=== PATIENT | male | born 1935 | race Caucasian/White ===

== ENCOUNTER 2024-05-20 14:20 | Emergency (ER) | payer MEDICAID, SELFPAY ==
[2024-05-20 14:23] VITALS: BP 157/79
[2024-05-20 14:30] VITALS: BMI 21.8
[2024-05-20 14:50] LABS: % Basophils 0.2 % (0-2); % Eosinophils 0.5 % (0-6); % Immature Granulocytes 0.5 % (0-0.5); % Lymphocytes 22.9 % (20.5-51.1); % Monocytes 4.2 % (1.7-9.3); % Neutrophils 71.7 % (42.2-75.2); Absolute Lymphocytes 1.9 10^3/uL (1.2-3.4); Absolute Monocytes 0.3 10^3/uL (0.1-0.6); Absolute Neutrophils 5.8 10^3/uL (1.4-6.5); Hematocrit 36.8 % (39.0-52.0); Hemoglobin 12.2 g/dL (13.0-18.0); Mean Corp Hgb Conc. 33.2 g/dL (33.0-37.0); Mean Corpuscular Hgb 30.2 pg (27.0-31.0); Mean Corpuscular Volume 91.1 fL (80.0-94.0); Mean Platelet Volume 10.2 fL (7.4-10.4); Nucleated Red Blood Cells % 0 % (-); Platelet Count 187 10^3/uL (130-400); Red Blood Cell Count 4.04 10^6/uL (4.70-6.10); Red Cell Dist. Width 13.2 % (11.5-14.5); White Blood Cell Count 8.1 10^3/uL (4.8-10.8)
[2024-05-20 15:01] LABS: ALT (SGPT) 18 U/L (0-50); AST (SGOT) 20 U/L (17-59); Alkaline Phosphatase 167 U/L (38-126); Blood Urea Nitrogen 26 mg/dl (9-20); Calcium 9.4 mg/dl (8.4-10.2); Carbon Dioxide 31 mmol/L (22-30); Chloride 99 mmol/L (98-107); Estimated Creatinine Clearance 53 ml/min; Glucose 107 mg/dl (70-99); Potassium 4.2 mmol/L (3.5-5.1); Sodium 137 mmol/L (135-145); Total Bilirubin 0.9 mg/dl (0.2-1.3); Total Protein 6.7 g/dl (6.3-8.2); eGFR > 60.00
--- NOTE | 2024-05-20 15:02 | ED.GENMED ---
History of Present Illness
General
Chief Complaint: Fall
Source: family (Both daughters)
Time Seen by Provider: 05/20/24 14:23
History of Present Illness
History of Present Illness:
89-year-old male apparently fell yesterday. Unwitnessed but family heard the fall and immediately got to him and he was awake. They do not think he syncopized. Patient has significant dementia. He is not stood or bared weight since this.
Past History
Past History
ED Past Medical History: HTN and Other (Dementia)
ED Past Surgical History: Appendectomy
Social History
Living: with family
Employment: Retired
Review of Systems
Review of Systems
Unable to obtain full review of systems at this time due to: dementia
All Other Systems: Not applicable
Phy Exam
Physical Exam
Physical Exam:
TRAUMA EXAM:
VITAL SIGNS: Vital signs reviewed, quiet. Nonverbal. Is not opening his eyes. Does respond to his daughters however
DISTRESS: No active disease
EYES: Pupils reactive, no orbital trauma
NOSE: No deformity or epistaxis
FACE AND SCALP: No scalp or facial trauma, external canals no blood
NECK: Supple nontender
BACK: Pelvis stable
RESPIRATORY: No distress, breath sounds normal, no tender chest wall
CARDIAC: No murmur, pulses equal and strong
ABDOMEN: Soft nontender bowel sounds normal
SKIN: Skin intact no bleeding, color normal
EXTREMITIES: Questionable slight shortening of the left leg and questionable slight external rotation. However no obvious pain with hip rotation. No pelvic instability.
NEUROLOGICAL: Grossly nonfocal. Significant dementia.
PSYCH: Mood affect normal
Course
Orders/Labs/Results
Orders:
Orders
05/20/24 14:36
Complete Blood Count/With Diff Urgent
Comprehensive Metabolic Panel Urgent
05/20/24 14:47
Hip, Left 2-3 Views [CR Hip - LT w/wo Pel 2-3 Vw*] Urgent
Comment:
Reason For Exam: Trauma/left hip pain
Include a pelvis x-ray?: Yes
05/20/24 15:38
CT Lower Ext W/o Iv Cont Lt Urgent
Comment:
Reason For Exam: Left hip pain.
Abnormal Lab Results
05/20/24
14:36
RBC 4.04 L 10^6/uL
(4.70-6.10)
Hgb 12.2 L g/dL
(13.0-18.0)
Hct 36.8 L %
(39.0-52.0)
Carbon Dioxide 31 H mmol/L
(22-30)
BUN 26 H mg/dl
(9-20)
Glucose 107 H mg/dl
(70-99)
Alkaline Phosphatase 167 H U/L
(38-126)
05/20/24 14:36
05/20/24 14:36
Vital Signs
Initial and Last Documented VS:
Initial Vital Signs
Temp Pulse Resp BP Pulse Ox
98.4 F 72 16 157/79 98
05/20/24 14:23 05/20/24 14:23 05/20/24 14:23 05/20/24 14:23 05/20/24 14:23
Last Documented Vital Signs
Temp Pulse Resp BP Pulse Ox
98.4 F 72 16 157/79 98
05/20/24 14:23 05/20/24 14:23 05/20/24 14:23 05/20/24 14:23 05/20/24 14:23
MDM/Problems Addressed
Differential Diagnosis Includes:
Fairly high suspicion for hip or pelvic fracture. Patient will not bear weight. Workup in progress. No other signs of trauma.
*Radiology
Radiology exam reviewed: preliminary read by ED provider (Negative) and radiology read reviewed (Nondisplaced fracture superior pubic ramus and anterior acetabulum)
*Critical Care Note
Total Time (30-74mins, 75-104mins- exclusive of procedures): Not Applicable
Data Reviewed
Review of Other/Old Records Reveals: Labs, Records and Testing
Update Note
Update Note:
Report sent to orthopedics. Agree weightbearing as tolerated. Family would prefer to have him at home. Options of admission rehab versus home were offered and discussed.
ED Attending Note
-
Portions of this chart may have been created with voice recognition software.� Occasional wrong word or��sound alike� substitutions may have occurred due to the inherent limitations of voice recognition software.
Discharge Plan
Departure
Patient Disposition: Home (Routine Discharge)
Date of Disposition: 05/20/24
Time of Disposition: 18:07
Patient with high blood pressure during this ER visit?: Yes
Discharge Problem:
Fall/pelvic fracture
Instructions: Pelvic fracture, BLOOD PRESSURE
Prescriptions:
No Action
memantine 10 mg Tablet
10 mg PO DAILY
tamsulosin 0.4 mg Capsule
0.4 mg PO DAILY
Referrals:
Lc Thomas MD [Active] - Follow up in 2-3 days
Naima Chi MD [Family Provider] -
Activity Restrictions/Additional Instructions:
Toe-touch weightbearing as tolerated
Call the orthopedist Wednesday for close follow-up
Tylenol would be the safest for pain
If you change your mind about admission, had difficulty handling the issues at home, increasing pain, please return immediately to the ER
Interventions
Interventions:
*General Assessment Last Done: 05/20/24 14:30
ED- Fall Risk Assessment Last Done: 05/20/24 14:33
ED-Musculoskeletal Assessment Last Done: 05/20/24 14:33
ED- Neurological Assessment Last Done: 05/20/24 14:33
ED-Skin Assessment Last Done: 05/20/24 14:33
Discharge Date and Time
Print Language: YEMENI
== END 2024-05-20 19:13 | disposition home or self-care (01) ==
LOC: EMR 14:20
PROVIDERS: EMERGENCY PHYSICIAN Emergency Medicine; FAMILY PHYSICIAN Family Medicine
DX: S32.512A Fracture of superior rim of left pubis, initial encounter for closed fracture (principal); S32.492A Other specified fracture of left acetabulum, initial encounter for closed fracture; W19.XXXA Unspecified fall, initial encounter; I10 Essential (primary) hypertension; F03.90 Unspecified dementia, unspecified severity, without behavioral disturbance, psychotic disturbance, mood disturbance, and anxiety; Z90.49 Acquired absence of other specified parts of digestive tract
CPT/HCPCS: 99284; 73502; 73700; 80053; 85025

== ENCOUNTER 2024-05-28 19:48 | Inpatient (IN) | payer MEDICAID, SELFPAY ==
[2024-05-28] VITALS (10 sets, daily range): BP systolic 79–157; BP diastolic 46–69
[2024-05-28] MEDS: NSS 1000 IV ×2 (13:52→20:27)
[2024-05-28 14:10] LABS: % Basophils 0.3 % (0-2); % Eosinophils 0.1 % (0-6); % Immature Granulocytes 0.4 % (0-0.5); % Lymphocytes 17.4 % (20.5-51.1); % Monocytes 6.3 % (1.7-9.3); % Neutrophils 75.5 % (42.2-75.2); Absolute Lymphocytes 1.8 10^3/uL (1.2-3.4); Absolute Monocytes 0.7 10^3/uL (0.1-0.6); Absolute Neutrophils 7.8 10^3/uL (1.4-6.5); Hematocrit 33.8 % (39.0-52.0); Hemoglobin 11.6 g/dL (13.0-18.0); Mean Corp Hgb Conc. 34.3 g/dL (33.0-37.0); Mean Corpuscular Hgb 30.4 pg (27.0-31.0); Mean Corpuscular Volume 88.5 fL (80.0-94.0); Mean Platelet Volume 10.1 fL (7.4-10.4); Nucleated Red Blood Cells % 0 % (-); Platelet Count 251 10^3/uL (130-400); Red Blood Cell Count 3.82 10^6/uL (4.70-6.10); Red Cell Dist. Width 13.3 % (11.5-14.5); Urine Albumin 1+ (Neg - Trace); Urine Bilirubin Negative (Negative); Urine Character Clear (Clear); Urine Color Yellow; Urine Glucose Negative (Negative); Urine Ketone Negative (Negative); Urine Leukocyte Negative (Negative); Urine Nitrite Negative (Negative); Urine Occult Blood Negative (Negative); Urine Urobilinogen Negative (Neg - 1+); White Blood Cell Count 10.3 10^3/uL (4.8-10.8)
[2024-05-28 14:27] LABS: ALT (SGPT) 14 U/L (0-50); AST (SGOT) 18 U/L (17-59); Albumin 3.2 g/dl (3.5-5.0); Alkaline Phosphatase 160 U/L (38-126); Blood Urea Nitrogen 37 mg/dl (9-20); Calcium 9.4 mg/dl (8.4-10.2); Carbon Dioxide 27 mmol/L (22-30); Chloride 102 mmol/L (98-107); Glucose 127 mg/dl (70-99); Lipase 40 U/L (23-300); Potassium 3.9 mmol/L (3.5-5.1); Sodium 134 mmol/L (135-145); Total Bilirubin 1.2 mg/dl (0.2-1.3); Total Protein 5.7 g/dl (6.3-8.2); eGFR > 60.00
[2024-05-28 14:36] LABS: COVID-19 Antigen Negative (Negative)
[2024-05-28 14:43] LABS: Urine Red Blood Cell None Seen /HPF (0-2); Urine Squamous Cell None seen /LPF (Few); Urine White Cell None Seen /HPF (0-5)
--- NOTE | 2024-05-28 14:45 | ED.GENMED ---
History of Present Illness
General
Chief Complaint: Failure to Thrive
Source: patient
Exam Limitations: none
Time Seen by Provider: 05/28/24 14:12
Nursing documentation reviewed up to this point in time: agreed with
History of Present Illness
History of Present Illness:
Patient with history of dementia, presents to ED from home, accompanied by his daughters, secondary to decreased appetite and intake over the past 2 days, along with increased burping along with 'rubbing his belly', similar to when he had bowel
obstruction a few years ago. Denies fever. Denies vomiting. Denies diarrhea. Denies abdominal distention. Family does report 'large bowel movement' yesterday. Denies recent change in medications or diet. Secondary to constant burping, patient
has not been able to sleep well for the past 2 nights.
Past History
Past History
ED Past Medical History: HTN and Other (Dementia)
ED Past Surgical History: Appendectomy
Social History
Living: with family
Employment: Retired
Review of Systems
Review of Systems
Unable to obtain full review of systems at this time due to: dementia
All Other Systems: Not applicable
Phy Exam
Physical Exam
Physical Exam:
Physical Exam
General: no apparent distress, not acutely ill. afebrile
Head: nc/at. eommi
Neck: supple. normal range of motion.
Heart: s1/s2 regular rate and rhythm, no murmur.
Lungs: no acute respiratory distress. clear bilaterally
Abdomen: normal bowel sounds. not tender. no distention
Neuro: alert and oriented x 1. no focal neurological deficits
Skin: no rash
Extremities: no edema. no calf tenderness.
Course
Orders/Labs/Results
Orders:
Orders
05/28/24 13:38
Straight cath- Treatment ONCE
05/28/24 13:52
0.9% Sodium Chloride 1000 ml [Nss] 1,000 ml IV BOLUS
05/28/24 13:53
COVID-19 Antigen Urgent
Source: Nasal Swab
Complete Blood Count/With Diff Urgent
Comprehensive Metabolic Panel Urgent
Lipase Urgent
Urinalysis Reflex To Culture Urgent
Date Specimen was Collected: 05/28/24
Time Specimen was Collected: 13:37
Urine Microscopic Reflex Cult Urgent
Influenza A+B Rapid Molecular Urgent
GUILLE Source: Nasal Swab
Specimen Description:
Date Specimen was Collected: 05/28/24
Time Specimen was Collected: 13:37
05/28/24 14:13
CR Obstruct Series W/pa Chest Urgent
Comment:
Reason For Exam: abdominal pain
05/28/24 Dinner
NPO
Allow oral meds: No
Allow clear liquids: No
05/28/24 16:05
Iohexol [Omnipaque] See Protocol PO NOW STA
05/28/24 16:07
CT Abd/pelvis W Iv Cont Urgent
Comment:
Reason For Exam: abd pain w abnormal x-ray
05/28/24 18:54
Admit/Transfer Patient As Directed
Co-Sign Provider:
Level of Care: Inpatient admission
Assign to:: Medical/Surgical
Physician / Group: senia
Diagnosis: sigmoid volvulus
Reason for Hospitalization: sigmoid volvulus
Expected length of stay greater than two midnights?: Yes
ELOS- Estimated Length of Stay in days: 2
I certify the patient meets the requirements for IP care: Yes
PRN Pain Medication Management As Directed
May give lesser potent ordered pain med per pt: Yes
preference::
Protocol:: Medication orders for pain may be administered in a
manner that supports deferring to patient preference
when the pt is:
- Requesting an ordered lesser potent pain medication.
Least to most potent pain medications are defined
as: acetaminophen < NSAID < tramadol < opioids
(morphine, oxycodone, hydromorphone).
- Requesting a lesser dose of the same medication IF
ORDERED.
- Requesting a less intrusive route of administration
if both routes are prescribed by the provider (PO <
IV).
05/28/24 18:55
Code Status As Directed
Resuscitation Status: Full Code
05/28/24 19:44
Enema As Directed
Type: Milk and molasses
Amount: 1
05/28/24 20:07
0.9% Sodium Chloride 1000 ml [Nss] 1,000 ml IV 100 mls/hr
HYDROmorphone [Dilaudid] 0.5 mg IV Q4HPRN PRN
Ondansetron Injectable [Zofran] 4 mg IV Q6HPRN PRN
05/28/24 20:07
ColoRectal Surgery Consult Routine
Consulting Provider: Natan Jean
Was physician already notified: Yes
GASTROINTESTINAL CONSULT Routine
Consulting Provider: Salo Way
Was physician already notified: Yes
Activity As Directed
Activity Level: As Tolerated
Pneumatic Compression Sleeves As Directed
Type: Knee high
Vital Signs As Directed
Frequency: Per unit guidelines
DX Deep Vein Thrombosis Video Routine
05/29/24 06:00
Complete Blood Count/With Diff IN AM
Comprehensive Metabolic Panel IN AM
05/29/24 07:00
Enema As Directed
Type: Milk and molasses
Amount: 1
Abnormal Lab Results
05/28/24
13:53
RBC 3.82 L 10^6/uL
(4.70-6.10)
Hgb 11.6 L g/dL
(13.0-18.0)
Hct 33.8 L %
(39.0-52.0)
Absolute Neuts (auto) 7.8 H 10^3/uL
(1.4-6.5)
Absolute Monos (auto) 0.7 H 10^3/uL
(0.1-0.6)
Neutrophils % 75.5 H %
(42.2-75.2)
Lymphocytes % 17.4 L %
(20.5-51.1)
Sodium 134 L mmol/L
(135-145)
BUN 37 H mg/dl
(9-20)
Glucose 127 H mg/dl
(70-99)
Alkaline Phosphatase 160 H U/L
(38-126)
Total Protein 5.7 L g/dl
(6.3-8.2)
Albumin 3.2 L g/dl
(3.5-5.0)
Urine Albumin (Reflex) 1+ A
(Neg - Trace)
05/28/24 13:53
05/28/24 13:53
Vital Signs
Initial and Last Documented VS:
Initial Vital Signs
Temp Pulse Resp BP Pulse Ox
98.4 F 75 20 79/46 98
05/28/24 13:24 05/28/24 13:24 05/28/24 13:24 05/28/24 13:24 05/28/24 13:24
Last Documented Vital Signs
Temp Pulse Resp BP Pulse Ox
98.7 F 69 14 155/67 100
05/28/24 20:00 05/28/24 20:00 05/28/24 20:00 05/28/24 20:00 05/28/24 20:00
MDM/Problems Addressed
MDM/Problems Addressed:
History, exam, and CT scan consistent with recurrent sigmoid volvulus with high-grade obstruction.
Colorectal surgery on-call, Dr. Wyman, notified via [place] text, who recommends GI consultation for flex sigmoidoscopy for decompression.
customs compliance analyst GI physician, , notified via [employer]
Patient will be admitted for further evaluation and treatment.
*Critical Care Note
Total Time (30-74mins, 75-104mins- exclusive of procedures): Not Applicable
ED Attending Note
-
Portions of this chart may have been created with voice recognition software.� Occasional wrong word or��sound alike� substitutions may have occurred due to the inherent limitations of voice recognition software.
Discharge Plan
Departure
Patient Disposition: Admit
Date of Disposition: 05/28/24
Time of Disposition: 18:33
Admit to: Telemetry
Presentation/result/management discussed w/ accepting MD/DO: Hospitalist
Discharge Problem:
Volvulus
Interventions
Interventions:
*Risk Screen - Suicide Last Done: 05/28/24 13:24
*General Assessment Last Done: 05/28/24 14:09
*Neglect/Abuse Screening Last Done: 05/28/24 14:09
*ED- Fall Risk Assessment Last Done: 05/28/24 14:00
*ED COVID-19 Vaccine History Last Done: 05/28/24 14:00
*Nursing Disposition Last Done: 05/28/24 20:05
Discharge Date and Time
Discharge Date/Time: 05/28/24 20:05
--- NOTE | 2024-05-28 19:02 | HPS.HSE ---
Addendum entered and electronically signed by Kael Sheehan MD 05/28/24 19:49:
CT scan report is being addended to say that the patient does not have a volvulus. Enema ordered for now and in the a.m. as per GI.
Original Note:
Family Physician
-
Family Physician: Naima Chi MD
Chief Complaint
-
abdominal pain
History of Present Illness
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
3 days. History obtained from daughters. He has been eating very little and clenching his abdomen. He is unable to provide history due to dementia. He was dry heaving without vomiting today. He had a large bowel movement yesterday unknown
whether there was any blood in the stool. No bowel movements today. No fevers or chills.
He does not smoke or drink alcohol.
Medical History
Past Medical History
Past Medical History: Reports Other (sigmoid volvulus status post endoscopic decompression of sigmoid volvulus with rectal tube with later sigmoid resection in 2021, hypertension, dementia,)
Past Surgical History: Reports Other (sigmoid resection )
Social History
Tobacco: Non-smoker
Alcohol: None
Drug: None
Family History
Family History: Not pertinent
Allergies / Home Medications
Allergies reflects when Allergies were last updated in [employer].
Home Medications with original date entered in [employer]
Allergy/Medication List:
Allergies
Allergy/AdvReac Type Severity Reaction Status Date / Time
No Known Allergies Allergy Verified 05/28/24 13:26
Home Medications
memantine 10 mg tablet 10 mg PO BID Blood pressure 02/20/22
tamsulosin 0.4 mg capsule 0.4 mg PO DAILY Urinary issue 02/20/22
Review of Systems
-
History Source: Patient
A 12 point ROS was completed and negative except as noted: Yes
Constitutional: Reports No Symptoms
EENT: Reports No Symptoms
Respiratory: Reports No Symptoms
Cardiac: Reports No Symptoms
Abdomen/GI: Reports See HPI
: Reports No Symptoms
Musculoskeletal: Reports No Symptoms
Skin: Reports No Symptoms
Neurological: Reports No Symptoms
Endocrine: Reports No Symptoms
Hematologic/Lymphatic: Reports No Symptoms
Psych: Reports No Symptoms
Physical Exam
Vital Signs
Vital Signs
Temp Pulse Resp BP Pulse Ox
98.4 F 64 10 102/64 97
05/28/24 13:24 05/28/24 18:30 05/28/24 18:30 05/28/24 18:13 05/28/24 18:30
Physical Exam
General: Well Developed, Well Nourished and No Apparent Distress
HEENT: NormoCephalic, Moist mucous membranes and Atraumatic
Respiratory: Clear
Cardiac: S1/S2 and Regular Rhythm; No Murmur or Rub
GI: Soft, Non Distended, Normal Bowel Sounds and Tender (diffusely ); No Organomegaly
Rectal: Deferred by Provider
Musculoskeletal: No Clubbing, No Cyanosis and No Edema
Skin: No Rash
Neuro: Nonfocal/grossly intact
Laboratory Results
-
05/28/24 13:53
05/28/24 13:53
Laboratory Results
Total Bilirubin 1.2 mg/dl (0.2-1.3) 05/28/24 13:53
AST 18 U/L (17-59) 05/28/24 13:53
ALT 14 U/L (0-50) 05/28/24 13:53
Alkaline Phosphatase 160 U/L (38-126) H 05/28/24 13:53
Lipase 40 U/L (23-300) 05/28/24 13:53
Data Reviewed
-
Lab Data: Labs Reviewed by me
Old Records: Reviewed
Impression/Plan
-
IMPRESSION:
PLAN:
# Recurrent sigmoid volvulus with high-grade obstruction
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
-N.p.o.
-IV fluids
-CT scan shows sigmoid volvulus with high-grade obstruction
-GI consulted for decompression
-Colorectal surgery consulted
-Zofran, Dilaudid
Essential hypertension
-Not on medication
Dementia
-Hold memantine
BPH
-Hold tamsulosin
Full code
DVT prophylaxis-SCDs
N.p.o.
--- NOTE | 2024-05-28 19:29 | W.PN.UPDATE ---
Update Note
Progress Note Update
discussed case with Dr. Pereira and Garo; not likely volvulus. Also stool in rectum. will need enemas and flex sig to evaluate by GI or colorectal likely tomorrow
--- NOTE | 2024-05-28 20:15 | PTCARENOTE ---
Patient transported to unit from ED via stretcher. Patient pulled over to bed by hospital staff. Patient confused, nonverbal, and drowsy. Patient unable to answer admission questions and no family at bedside. Bed placed in lowest position. Care
ongoing.
[2024-05-28] MEDS: DILAUDID 0.5 MG IV (23:15)
[2024-05-29 03:41] VITALS: BP 135/76
[2024-05-29 06:28] LABS: % Basophils 0.3 % (0-2); % Eosinophils 1.1 % (0-6); % Immature Granulocytes 0.4 % (0-0.5); % Lymphocytes 22.8 % (20.5-51.1); % Monocytes 7.5 % (1.7-9.3); % Neutrophils 67.9 % (42.2-75.2); Absolute Eosinophils 0.1 10^3/uL (0-0.7); Absolute Lymphocytes 2.1 10^3/uL (1.2-3.4); Absolute Monocytes 0.7 10^3/uL (0.1-0.6); Absolute Neutrophils 6.3 10^3/uL (1.4-6.5); Hematocrit 32.2 % (39.0-52.0); Hemoglobin 10.7 g/dL (13.0-18.0); Mean Corp Hgb Conc. 33.2 g/dL (33.0-37.0); Mean Corpuscular Hgb 30.4 pg (27.0-31.0); Mean Corpuscular Volume 91.5 fL (80.0-94.0); Mean Platelet Volume 10.3 fL (7.4-10.4); Nucleated Red Blood Cells % 0 % (-); Platelet Count 223 10^3/uL (130-400); Red Blood Cell Count 3.52 10^6/uL (4.70-6.10); Red Cell Dist. Width 13.4 % (11.5-14.5); White Blood Cell Count 9.3 10^3/uL (4.8-10.8)
[2024-05-29] MEDS: NSS 1000 IV ×2 (06:44→16:54)
[2024-05-29 06:52] LABS: ALT (SGPT) 11 U/L (0-50); AST (SGOT) 17 U/L (17-59); Albumin 2.9 g/dl (3.5-5.0); Alkaline Phosphatase 161 U/L (38-126); Blood Urea Nitrogen 31 mg/dl (9-20); Carbon Dioxide 28 mmol/L (22-30); Chloride 104 mmol/L (98-107); Glucose 86 mg/dl (70-99); Potassium 3.7 mmol/L (3.5-5.1); Sodium 136 mmol/L (135-145); Total Bilirubin 1.2 mg/dl (0.2-1.3); Total Protein 5.3 g/dl (6.3-8.2); eGFR > 60.00
[2024-05-29 07:00] VITALS: BP 157/75
--- NOTE | 2024-05-29 08:25 | W.PN.HOSP.TC ---
Today's Communication/Plan
-
See plan
Assessment / Plan
Assessment / Plan
Physical Exam
General: Not in acute distress
HEENT: Normocephalic, Moist mucous membranes
Respiratory: Clear to Auscultation Bilaterally
Cardiac: S1/S2 and Regular Rhythm
GI: Soft, Non Distended, Normal Bowel Sounds and Tender (diffusely )
Musculoskeletal: No Cyanosis and No Edema
Skin: Warm. Dry.
Neuro: Sleeping
Assessment/Plan
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
3 days. History obtained from daughters. He has been eating very little and clenching his abdomen. He is unable to provide history due to dementia. He was dry heaving without vomiting today. He had a large bowel movement yesterday unknown
whether there was any blood in the stool. No bowel movements today. No fevers or chills. He does not smoke or drink alcohol.
# Presentation with Abdominal Pain
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
-Continue N.p.o. and only if patient vomits, then consider NG tube
-IV fluids
-Gastrografin enema ordered for today to evaluate anastomosis (patient also received enema in the ER)
-GI consulted for decompression
-Colorectal surgery consulted (patient known to colorectal surgeon Dr. Villa)
-Patient ultimately needs flex sig with evaluation of anastomosis and dilation if necessary
Recent fall on May 20, 2024 sustaining left superior pubic ramus fracture and acetabular fracture
-WBAT to LLE
-Follow-up with orthopedics outpatient
Essential hypertension
-Not on medication
Dementia
-Hold memantine
BPH
-Hold tamsulosin
Full code
DVT prophylaxis-SCDs. Lovenox.
N.p.o.
Anticipated Discharge: > 48 hours
Subjective/Interval History
-
Date of Service: May 29, 2024
Patient was seen and examined. He was sleeping, family was in the room and said that patient appeared less restless than previously.
Objective Data
-
Labs:
Laboratory Results
05/29/24
05:07
WBC 9.3
Hgb 10.7 L
Hct 32.2 L
Plt Count 223
Sodium 136
Potassium 3.7
Chloride 104
Carbon Dioxide 28
BUN 31 H
Creatinine 0.8
Glucose 86
Calcium 9.0
Total Bilirubin 1.2
AST 17
ALT 11
Alkaline Phosphatase 161 H
Vital Signs:
Vital Signs
Temp Pulse Resp BP Pulse Ox
97.6 F 65 16 135/76 98
05/28/24 23:32 05/29/24 03:41 05/28/24 23:32 05/29/24 03:41 05/28/24 23:32
--- NOTE | 2024-05-29 10:58 | CM ---
Pt is Haitian speaking and is confused 50% of time.He lives with daughters Luci and Katie who lives in a 2 story home with 1 step to enter and 12 steps to bed and bathroom. He assisted in all activities of daily living.He uses a walekr shower
chair and depends.LM with [facility] to check on insurance/medicaid access.
Pt [facility] hx / No SNF history
Pharmacy [facility]
PCP DR Chi
PLAN Requested PT DAVID calvert from for dc plan.
--- NOTE | 2024-05-29 12:35 | CON.CRS ---
Consultation
-
Date/Time Consultation Requested: 05/28/2024, 20:07
Date/Time Consultation Performed: 05/29/2024, 09:45
Requesting Provider: Kael Sheehan MD
Performing Provider: Natan Jean MD
Reason for Consultation: sigmoid stricture
Medical History
-
Chief Complaint: abdominal pain
History of Present Illness:
89-year-old male with a history of Alzheimer's and sigmoid volvulus status post sigmoid resection by Dr. Villa in 2021, presents to [facility] with his daughters. The patient is not able to communicate due to Alzheimer's and a language
barrier. History is obtained from his daughter at bedside. The daughter states that over the past several days he had not been eating much and was hiccuping often. He had been rubbing his abdomen which to her indicated pain. He had been dry
heaving but no vomiting. He had a large bowel movement 2 days ago but nothing since. There was apparently no blood in the stool. CT of the abdomen and pelvis showed likely a stricture at the distal colonic anastomosis with redundant proximal
colon. There is a prominent rectal stool bolus and findings are not typical for colonic volvulus. Severe constipation. He received one milk of magnesia enema last night but this did not produce any bowel movements. His white count has remained
normal and he has remained afebrile. Given the finding on CT, we have been consulted for our surgical opinion.
Past Medical History
Past Medical History: Other (hypertension, dementia)
Past Surgical History: Other (sigmoid volvulus status post sigmoid resection [place] [address] Villa)
Social History
Tobacco: Non-Smoker
Alcohol: None
Living: With Family
Family History
Family History: Reviewed & Not Pertinent
Allergies / Home Medications
Allergy/AdvReac Type Severity Reaction Status Date / Time
No Known Allergies Allergy Verified 05/28/24 13:26
�Medication �Instructions �Recorded �Confirmed �Type
memantine 10 mg tablet 10 mg PO BID Mental Health/Anxiety 02/20/22 05/28/24 History
tamsulosin 0.4 mg capsule 0.4 mg PO DAILY Urinary issue 02/20/22 05/28/24 History
Review of Systems
-
History Source: Family and Physician
Abdomen/GI: Abdominal Pain, Nausea and Constipated
A 10 point review of systems was completed, and was negative except as per HPI.
Physical Exam
Vital Signs
Temp 97.5 F 05/29/24 07:00
Pulse 65 05/29/24 07:00
Resp Rate 16 05/29/24 07:00
Blood pressure 157/75 05/29/24 07:00
SaO2 97 05/29/24 08:30
05/28/24 05/29/24 05/30/24
06:59 06:59 06:59
Actual Weight 61.377 kg 61.377 kg
Lab Results / Allergies
05/29/24 05:07
05/29/24 05:07
WBC 9.3 10^3/uL (4.8-10.8) 05/29/24 05:07
Hgb 10.7 g/dL (13.0-18.0) L 05/29/24 05:07
Hct 32.2 % (39.0-52.0) L 05/29/24 05:07
Plt Count 223 10^3/uL (130-400) 05/29/24 05:07
Abs Immat Gran (auto) 0.0 10^3/uL (0-0.05) 05/29/24 05:07
Neutrophils % 67.9 % (42.2-75.2) 05/29/24 05:07
Allergy/AdvReac Type Severity Reaction Status Date / Time
No Known Allergies Allergy Verified 05/28/24 13:26
Physical Exam
General: Well Developed, Well Nourished and No Apparent Distress
GI: Soft and Non Tender
Neuro: Awake
Psych: Calm
Data Reviewed
-
CT Scan: Image Personally Visualized and interpreted, Report Reviewed by me and Discussed with Patient
Labs: Labs Reviewed by me, Discussed with Physician and Discussed with Patient
Old Records: Reviewed
Assessment / Plan
-
Assessment: 89 yo male with a history of sigmoid resection secondary to a volvulus in 2021, presents with abdominal pain/nausea/hiccuping and found with a ?stricutre at the anastamosis on CT
-Remain NPO
-No role for an NGT at this point unless patient starts vomiting
-Gastrografin enema ordered for today to evaluate anastomosis
-Discussed plan above with family and GI who are in agreement
--- NOTE | 2024-05-29 13:18 | CON.GI ---
Addendum entered and electronically signed by Salo Way MD 05/29/24 14:16:
I saw and examined the patient.
The 911 EMERGENCY DISPATCHER or PA's note was reviewed and I agree with the note.
Comment:
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 He had been doing well until he started expressing that he had
some mild abdominal discomfort. He did pass a large bowel movement subsequently. He was sent to the emergency room. In the emergency room he had an x-ray and CT abdomen and pelvis. I did spend time personally reviewing the films and discussing
with the radiologist Dr. Flannery and the surgeon Dr. Wyman. Ultimately it did appear that he had stool throughout his colon. He did have stool in his rectum. He also had an unusual appearing anatomy likely due to his prior surgery with a
question of a possible narrowing at his anastomosis. The patient is resting comfortably in bed and has no nausea or vomiting.
abd: soft, overall not distended, bs+
impression
hx of sigmoid volvulus with hx of resection
abd discomfort
constipation
plan:
This patient is an 89-year-old man with a history of a sigmoid volvulus with mild abdominal pain with clear constipation and question of an anastomotic stricture with redundant proximal colon versus atypical volvulus which is less likely. For now I
would do the following:
1. enema x 2 (received one in ER) to help evacuate stool
2. discussed with radiology that if volvulus any concern could repeat CT scan with gastrograffin enema
3. ultimately needs flex sig with evaluation of anastomosis and dilation if necessary
4. Pt known to colorectal Dr. Villa
One hour spend on patient overall
Original Note:
Consultation
-
Date/Time Consultation Requested: 05/28/242006
Date/Time Consultation Performed: 05/29/24 1245
Requesting Provider: Dr. Veldanda
Performing Provider: Dr. Way/KRISTIAN Barksdale
Reason for Consultation: abdominal pain
Medical History
Chief Complaint / HPI
Chief Complaint: abdominal pain
History of Present Illness:
89-year-old male with past medical history of Alzheimer's disease, Slovak-speaking, history of sigmoid volvulus status post endoscopic decompression as well as sigmoid resection 2021, hypertension who presents to the emergency room with abdominal
discomfort. History is obtained from his daughter Katie who is at bedside. The patient has been expressing abdominal discomfort and the way he does this by usually rubbing his abdomen or rubbing his 2 feet together. He had dry heaving without any
vomiting. He had a large bowel movement prior to coming to the emergency room. No further bowel movements since that time. He had hiccups today. No fevers, chills, melena, hematochezia. He does not smoke. Rare social alcohol in the past.
Denies any family history of gastrointestinal malignancy or IBD. At the present time the patient appears comfortable. CT of the abdomen and pelvis with IV contrast shows history of prior sigmoid resection. Findings most likely to represent
stricture at distal colonic anastomosis with redundant proximal colon. Prominent rectal stool bolus and findings not typical for colonic volvulus. Severe constipation.
Past Medical History
Past Medical History: Other (Alzheimer's, sigmoid volvulus status post decompression and sigmoid resection (2021), hypertension)
Past Surgical History: Bowel Resection
Social History
Tobacco: Non-Smoker
Alcohol: Occasional
Personal:
Living: With Family
Family History
Family History: Other (No family history gastrointestinal malignancy or IBD)
Allergies / Home Medications
Allergy/AdvReac Type Severity Reaction Status Date / Time
No Known Allergies Allergy Verified 05/28/24 13:26
�Medication �Instructions �Recorded
memantine 10 mg tablet 10 mg PO BID Mental Health/Anxiety 02/20/22
tamsulosin 0.4 mg capsule 0.4 mg PO DAILY Urinary issue 02/20/22
Review of Systems
-
Unable to obtain full review of systems at this time due to: Dementia and Language Barrier
Vital Signs
Temp Pulse Resp BP Pulse Ox
97.5 F 65 16 157/75 97
05/29/24 07:00 05/29/24 07:00 05/29/24 07:00 05/29/24 07:00 05/29/24 08:30
Physical Exam
Exam
General: No Apparent Distress
HEENT: Anicteric
Respiratory: Clear (Anterior)
Cardiac: Regular Rhythm
GI: Soft, Non Tender, Non Distended and Normal Bowel Sounds
Skin: Warm
Neuro: Awake and Alert
Psych: Calm
Results
WBC 9.3 10^3/uL (4.8-10.8) 05/29/24 05:07
Hgb 10.7 g/dL (13.0-18.0) L 05/29/24 05:07
Hct 32.2 % (39.0-52.0) L 05/29/24 05:07
MCV 91.5 fL (80.0-94.0) 05/29/24 05:07
Plt Count 223 10^3/uL (130-400) 05/29/24 05:07
Absolute Neuts (auto) 6.3 10^3/uL (1.4-6.5) 05/29/24 05:07
Sodium 136 mmol/L (135-145) 05/29/24 05:07
Potassium 3.7 mmol/L (3.5-5.1) 05/29/24 05:07
Chloride 104 mmol/L (98-107) 05/29/24 05:07
Carbon Dioxide 28 mmol/L (22-30) 05/29/24 05:07
BUN 31 mg/dl (9-20) H 05/29/24 05:07
Creatinine 0.8 mg/dL (0.7-1.3) 05/29/24 05:07
Calcium 9.0 mg/dl (8.4-10.2) 05/29/24 05:07
Total Bilirubin 1.2 mg/dl (0.2-1.3) 05/29/24 05:07
AST 17 U/L (17-59) 05/29/24 05:07
ALT 11 U/L (0-50) 05/29/24 05:07
Alkaline Phosphatase 161 U/L (38-126) H 05/29/24 05:07
Lipase 40 U/L (23-300) 05/28/24 13:53
Diagnostic Image Results:
CT abdomen and pelvis with IV contrast 05/28/2024:Further history is provided of prior sigmoid resection. Findings are therefore felt most likely to represent stricture at the distal colonic anastomosis with redundant proximal colon. This stricture is
seen most clearly on coronal image 27. Furthermore there is a prominent rectal stool bolus and findings are not typical for colonic volvulus. Severe constipation. Consider therapeutic enemas and repeat imaging as clinically indicated.
Findings discussed with Dr. Way and Dr. Wyman on 05/28/2024 at 7:33 PM
Prior GI Procedures:
EGD:
Sigmoidoscopy 02/20/2022 (Dr. Villa): Volvulus. Successful complete decompression achieved. No specimens collected.
Assessment / Plan
-
89-year-old male with past medical history of Alzheimer's disease, Slovak-speaking, history of sigmoid volvulus status post endoscopic decompression as well as sigmoid resection 2021, hypertension who presents to the emergency room with abdominal
discomfort. History is obtained from his daughter Katie who is at bedside. The patient has been expressing abdominal discomfort and the way he does this by usually rubbing his abdomen or rubbing his 2 feet together. He had dry heaving without any
vomiting. He had a large bowel movement prior to coming to the emergency room. No further bowel movements since that time. Findings are therefore felt most likely to represent stricture at the distal colonic anastomosis with redundant proximal
colon. This stricture is seen most clearly on coronal image 27. Furthermore there is a prominent rectal stool bolus and findings are not typical for colonic volvulus. Severe constipation. Consider therapeutic enemas and repeat imaging as clinically
indicated.
Impression:
Abdominal pain
Constipation
Hx of Sigmoid volvulus s/p Sigmoid resection 2021
Alzheimers
Plan:
-NPO except meds
-IVF
-Gastrograffin enema
-Further recommendations to be forthcoming.
-
-
Thank you for consultation and allowing me to participate in the patient's care. Please call the [facility] physician during the after hours with any questions or concerns.
[2024-05-29 15:00] VITALS: BP 137/70
[2024-05-29 15:01] VITALS: BP 127/69; PULSE 73; O2SAT 98
[2024-05-29] MEDS: LOVENOX 40 MG SC (17:00)
[2024-05-30 00:13] VITALS: BP 158/78
[2024-05-30] MEDS: NSS 1000 IV (02:30)
[2024-05-30 05:46] LABS: Hematocrit 33.2 % (39.0-52.0); Hemoglobin 11.4 g/dL (13.0-18.0); Mean Corp Hgb Conc. 34.3 g/dL (33.0-37.0); Mean Corpuscular Hgb 30.7 pg (27.0-31.0); Mean Corpuscular Volume 89.5 fL (80.0-94.0); Mean Platelet Volume 10.2 fL (7.4-10.4); Platelet Count 231 10^3/uL (130-400); Red Blood Cell Count 3.71 10^6/uL (4.70-6.10); Red Cell Dist. Width 13.1 % (11.5-14.5); White Blood Cell Count 8.5 10^3/uL (4.8-10.8)
[2024-05-30 06:14] LABS: Blood Urea Nitrogen 20 mg/dl (9-20); Carbon Dioxide 25 mmol/L (22-30); Chloride 104 mmol/L (98-107); Estimated Creatinine Clearance 65 ml/min; Glucose 77 mg/dl (70-99); Magnesium 1.7 mg/dl (1.6-2.3); Potassium 3.7 mmol/L (3.5-5.1); Sodium 136 mmol/L (135-145); eGFR > 60.00
[2024-05-30 07:47] VITALS: BP 160/82
--- NOTE | 2024-05-30 09:15 | W.PN.HOSP.TC ---
Today's Communication/Plan
-
Gastrografin enema today
Overall symptoms have improved since admission
Assessment / Plan
Assessment / Plan
Physical Exam
General: Not in acute distress
HEENT: Normocephalic, Moist mucous membranes
Respiratory: Clear to Auscultation Bilaterally
Cardiac: S1/S2 and Regular Rhythm
GI: Soft, Non Distended, Normal Bowel Sounds and Tender (diffusely )
Musculoskeletal: No Cyanosis and No Edema
Skin: Warm. Dry.
Neuro: Sleeping
Assessment/Plan
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
3 days. History obtained from daughters. He has been eating very little and clenching his abdomen. He is unable to provide history due to dementia. He was dry heaving without vomiting today. He had a large bowel movement yesterday unknown
whether there was any blood in the stool. No bowel movements today. No fevers or chills. He does not smoke or drink alcohol.
# Presentation with Abdominal Pain
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
-Continue N.p.o. (except medications) and only if patient vomits, then consider NG tube
-IV fluids
-Gastrografin enema for today to evaluate anastomosis (patient also received enema in the ER)
-GI consulted
-Colorectal surgery consulted (patient known to colorectal surgeon Dr. Villa)
-Patient ultimately needs flex sig with evaluation of anastomosis and dilation if necessary
Recent fall on May 20, 2024 sustaining left superior pubic ramus fracture and acetabular fracture
-WBAT to LLE
-Follow-up with orthopedics outpatient
Essential hypertension
-Not on medication
Dementia
-Hold memantine
BPH
-Hold tamsulosin
Full code
DVT prophylaxis-SCDs. Lovenox.
N.p.o. (except meds)
Anticipated Discharge: > 48 hours
Subjective/Interval History
-
Date of Service: May 30, 2024
Patient was seen and examined. He was sleeping, no new symptoms or complaints.
Objective Data
-
Labs:
Laboratory Results
05/30/24
05:07
WBC 8.5
Hgb 11.4 L
Hct 33.2 L
Plt Count 231
Sodium 136
Potassium 3.7
Chloride 104
Carbon Dioxide 25
BUN 20
Creatinine 0.7
Glucose 77
Calcium 9.0
Vital Signs:
Vital Signs
Temp Pulse Resp BP Pulse Ox
97.4 F 69 17 160/82 99
05/30/24 07:47 05/30/24 07:47 05/30/24 07:47 05/30/24 07:47 05/30/24 07:47
--- NOTE | 2024-05-30 09:46 | W.PN.CRS1 ---
Today's Communication / Plan
-
gastrogafin enema
Assessment/Plan
-
Assessment: 89 yo male with a history of sigmoid resection secondary to a volvulus in 2021, presents with abdominal pain/nausea/hiccuping and found with a ?stricutre at the anastamosis on CT
-Remain NPO
-No role for an NGT at this point unless patient starts vomiting
-Gastrografin enema ordered for today to evaluate anastomosis (held yesterday, as radiology requested enemas prior to procedure)
-Discussed plan above with family and GI who are in agreement
Subjective Data
Subjective Data
Date of Service: May 30, 2024
Patient is resting comfortable. He does not communicate (dementia/language barrier)
Objective Data
-
Vital Signs
Temp Pulse Resp BP Pulse Ox
97.4 F 69 17 160/82 99
05/30/24 07:47 05/30/24 07:47 05/30/24 07:47 05/30/24 07:47 05/30/24 07:47
Intake & Output
05/29/24 05/30/24 05/31/24
06:59 06:59 06:59
Other:
Number of approximated SMALL 2
amounts of urine
How many times incontinent 1
SMALL amount urine
How many times incontinent 2 2
SATURATED amount urine
Lab Results
05/30/24 05:07
05/30/24 05:07
Physical Exam
-
General: No Acute Distress
Abdomen: Soft, Non Distended and Non Tender
Skin: Warm and Dry
--- NOTE | 2024-05-30 11:46 | W.PN.GI.CBS2 ---
Addendum entered and electronically signed by Corinna Guzman DO 05/30/24 17:41:
Patient seen and examined independently of the EDUCATION DIAGNOSTICIAN. I agree with her note with my additions below
Patient is a demented 89-year-old Malagasy speaking male. I did review the enema study myself and also spoke to Drs. Jena and Allen from colorectal surgery. I also spoke to both daughters Clover and Kaite ([phone]) and his all at
bedside. The patient appears comfortable and is not complaining. The last episodes of dry heaves were yesterday. On exam he is soft no significant tenderness.
The enema study does show contrast filling the rectum and distal sigmoid with a severe luminal narrowing in the distal sigmoid at the level of the anastomotic site with no contrast going proximally consistent with an obstruction.
In discussion with colorectal surgery and the family I told the family the options are: #1 do nothing and get a hospice, #2 attempt endoscopic injection/balloon dilation and possible stenting, versus #3 surgery.
Understandably, they would like to try #2, endoscopic injection/balloon dilation and possible stenting.
Logistically this may be challenging to get done tomorrow 05/31/[address] Jones's schedule. It may be
I will try and keep the family up-to-date on timing
Original Note:
Today's Communication / Plan
-
Gastrograffin enema today
Assessment / Plan
-
89-year-old male with past medical history of Alzheimer's disease, Malagasy-speaking, history of sigmoid volvulus status post endoscopic decompression as well as sigmoid resection 2021, hypertension who presents to the emergency room with abdominal
discomfort. History is obtained from his daughter Katie who is at bedside. The patient has been expressing abdominal discomfort and the way he does this by usually rubbing his abdomen or rubbing his 2 feet together. He had dry heaving without any
vomiting. He had a large bowel movement prior to coming to the emergency room. No further bowel movements since that time. Findings are therefore felt most likely to represent stricture at the distal colonic anastomosis with redundant proximal
colon. This stricture is seen most clearly on coronal image 27. Furthermore there is a prominent rectal stool bolus and findings are not typical for colonic volvulus. Severe constipation. Consider therapeutic enemas and repeat imaging as clinically
indicated.
Impression:
Abdominal pain-> improved per family as patient would usually rub his abdomen or rub feet together to express pain.
Constipation-> s/p 2 enemas with liquid brown stool
Hx of Sigmoid volvulus s/p Sigmoid resection 2021
Alzheimers-> Daughter Katie (phone number [phone])
Plan:
-NPO except meds
-IVF at present time
-Gastrograffin enema to be performed today
-ColoRectal surgery following as well
Subjective
Subjective
Date of Service: May 30, 2024
Patient asleep, without any complaints per his daughter Katie. No further hiccups. Patient's at bedside. Patient with liquid BM after tap water enema. He is going for gastrograffin enema today.
Objective
Data Reviewed
Laboratory Data:
Laboratory Results
05/30/24 05:07
05/30/24 05:07
Laboratory Results
Magnesium 1.7 mg/dl (1.6-2.3) 05/30/24 05:07
Total Bilirubin 1.2 mg/dl (0.2-1.3) 05/29/24 05:07
AST 17 U/L (17-59) 05/29/24 05:07
ALT 11 U/L (0-50) 05/29/24 05:07
Alkaline Phosphatase 161 U/L (38-126) H 05/29/24 05:07
Lipase 40 U/L (23-300) 05/28/24 13:53
Vital Signs and I&O:
Vital Signs
Temp Pulse Resp BP Pulse Ox
97.4 F 69 17 160/82 99
05/30/24 07:47 05/30/24 07:47 05/30/24 07:47 05/30/24 07:47 05/30/24 07:47
Physical Exam
Physical Exam
Cardiology: Normal Sinus Rhythm
Pulmonary: Clear (anterior)
GI: Soft, Non Distended, Non Tender and Normal Bowel Sounds
[2024-05-30 12:25] VITALS: BP 148/81; BP 157/81; PULSE 69; O2SAT 97
[2024-05-30 15:02] VITALS: BP 155/74
--- NOTE | 2024-05-30 16:12 | VNURNOTE ---
Home Health Liaison met with patient, daughters and at bedside to discuss [facility] nurse/therapy, visits, schedule and homebound status. They are agreeable and understand that visits at home will be 2-3 x per week to assess and teach medical
management. Daughters and spouse are aware that [facility] will contact them for start of care in 1-2 days after discharge from .
[facility] referral completed in [facility].
--- NOTE | 2024-05-30 16:40 | CM ---
Spoke with dgt who interpreted Malian /Monegasque for [facility].
PT OT says [facility] . Family requested VN .Family refused SNF. [facility] liaison Addie saw pt.
Family may need equipment .
PLAN Home with [facility]
[2024-05-30] MEDS: LR 1000 IV (17:50)
[2024-05-30] MEDS: LOVENOX 40 MG SC (17:50)
[2024-05-30 23:00] VITALS: BP 166/74
[2024-05-31 06:29] LABS: Blood Urea Nitrogen 18 mg/dl (9-20); Calcium 8.9 mg/dl (8.4-10.2); Carbon Dioxide 25 mmol/L (22-30); Chloride 104 mmol/L (98-107); Estimated Creatinine Clearance 56 ml/min; Glucose 70 mg/dl (70-99); Magnesium 1.6 mg/dl (1.6-2.3); Potassium 3.7 mmol/L (3.5-5.1); Sodium 136 mmol/L (135-145); eGFR > 60.00
[2024-05-31 07:05] VITALS: BP 156/77
--- NOTE | 2024-05-31 07:06 | W.PN.HOSP.TC ---
Today's Communication/Plan
-
Patient's family prefers patient to have an attempt at endoscopic injection/balloon dilation and possible stenting -- scheduled for 05/31/24
Assessment / Plan
Assessment / Plan
Physical Exam
General: Not in acute distress
HEENT: Normocephalic, Moist mucous membranes
Respiratory: Clear to Auscultation Bilaterally
Cardiac: S1/S2 and Regular Rhythm
GI: Soft, Non Distended, Normal Bowel Sounds and Tender (diffusely )
Musculoskeletal: No Cyanosis and No Edema
Skin: Warm. Dry.
Neuro: Sleeping
Assessment/Plan
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
3 days. History obtained from daughters. He has been eating very little and clenching his abdomen. He is unable to provide history due to dementia. He was dry heaving without vomiting today. He had a large bowel movement yesterday unknown
whether there was any blood in the stool. No bowel movements today. No fevers or chills. He does not smoke or drink alcohol.
# Presentation with Abdominal Pain
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
-Continue N.p.o. (except medications) and only if patient vomits, then consider NG tube
-IV fluids
-Gastrografin enema: showed contrast filling the rectum and distal sigmoid with a severe luminal narrowing in the distal sigmoid at the level of the anastomotic site with no contrast going proximally consistent with an obstruction as per GI
-GI consulted
-Colorectal surgery consulted (patient known to colorectal surgeon Dr. Villa)
-Patient's family prefers patient to have an attempt at endoscopic injection/balloon dilation and possible stenting -- scheduled for 05/31/24
Recent fall on May 20, 2024 sustaining left superior pubic ramus fracture and acetabular fracture
-WBAT to LLE
-Follow-up with orthopedics outpatient
Essential hypertension
-Not on medication
Dementia
-Hold memantine
BPH
-Hold tamsulosin
Full code
DVT prophylaxis-SCDs. Lovenox.
N.p.o. (except meds)
Patient requires a wheelchair within the home to complete their daily activities. Patient unable to self propel. He has a caregiver to propel him. Patient is in need of a semi-electric hospital bed with foam mattress due to the need to elevate the
head of the bed above 30 degrees to prevent aspiration and to facilitate frequent repositioning to prevent bed ulcers and pressure points.
Anticipated Discharge: Within 24 hours
Subjective/Interval History
-
Date of Service: May 31, 2024
Patient was seen and examined. No new symptoms or complaints.
Objective Data
-
Labs:
Laboratory Results
05/31/24
05:15
Sodium 136
Potassium 3.7
Chloride 104
Carbon Dioxide 25
BUN 18
Creatinine 0.8
Glucose 70
Calcium 8.9
Vital Signs:
Vital Signs
Temp Pulse Resp BP Pulse Ox
98.1 F 70 16 166/74 98
05/30/24 23:00 05/30/24 23:00 05/30/24 23:00 05/30/24 23:00 05/30/24 23:00
[2024-05-31] MEDS: LR 1000 IV (08:17)
--- NOTE | 2024-05-31 09:26 | VNURNOTE ---
[facility] liaison spoke with patient's daughter Katie regarding equipment. She is requesting a wheelchair. Home layout is 2 story house with the bedroom on the second floor. Liaison expressed concerns about using stairs safely to second floor.
Recommended a hospital bed and creating a first floor set up. Daughter hesitant, 'too many changes.' She will talk to her spouse and sister and get back to me. Liaison contact provided.
--- NOTE | 2024-05-31 10:29 | CM ---
[facility] confirmed pt has [place] Medicaid access.
Reviewed PT OT evals of SNF with dgts and . Family refused SNF requested pt home with [facility] .
Daughters interpreted [place]ic /Citizen Of [place] for [facility].
[facility] working on equipment for home.( hospital bed and wheelchair )
PLAN Home with [facility]
[2024-05-31] MEDS: D5/0.9% SODIUM CHLORIDE 1000 IV (12:55)
[2024-05-31] MEDS: THIAMINE INJECTION 100 MG IV (12:58)
--- NOTE | 2024-05-31 13:51 | VNURNOTE ---
Addendum entered by Addie Holloway RN 05/31/24 15:37:
[facility] Dept of [employer] Authorization Request for DME form signed by all parties and faxed back to Natalia at [facility]. Faxed to [phone].
Original Note:
[facility] liaison spoke with Natalia at [facility]. She stated that patient's insurance co requires a handwritten form signed by Dr and patient/family. The form has to be sent back to DME co and mailed out. Lag time will be 1-2 weeks and does
not guarantee approval. If able to pay out of pocket: W/C cost $45/month, hospital bed costs $150/month. Called daughter Katie. Explained above. She wants to proceed with form processed through insurance. She will investigate buying a w/c or
obtaining one from a friend or thrift shop. Advised daughter that patient will most likely need a w/c upon DC to get into house. Daughter will try to get one before DC and stated her son and family can help him into house.
[2024-05-31 15:05] VITALS: BP 146/74
--- NOTE | 2024-05-31 16:46 | W.PN.UPDATE ---
Update Note
Progress Note Update
Discussed with daughter.
Patient is on for procedure for tomorrow, with Dr. Jones. Continue n.p.o. status for procedure
[2024-05-31] MEDS: LOVENOX 40 MG SC (17:40)
--- NOTE | 2024-05-31 18:29 | PTCARENOTE ---
patient appears comfortable, only attempted to transfer oob by self when he's incontinent of urine, NPO, turns with assist x2, vss, will continue to monitor.
[2024-05-31 23:50] VITALS: BP 183/90
[2024-06-01] VITALS (9 sets, daily range): BP systolic 109–161; BP diastolic 71–104
[2024-06-01 01:17] LABS: Potassium 3.6 mmol/L (3.5-5.1)
[2024-06-01] MEDS: D5/0.9% SODIUM CHLORIDE 1000 IV ×3 (02:20→22:14)
[2024-06-01 06:17] LABS: Blood Urea Nitrogen 15 mg/dl (9-20); Calcium 8.9 mg/dl (8.4-10.2); Carbon Dioxide 24 mmol/L (22-30); Chloride 104 mmol/L (98-107); Estimated Creatinine Clearance 65 ml/min; Glucose 106 mg/dl (70-99); Potassium 3.6 mmol/L (3.5-5.1); Sodium 136 mmol/L (135-145); eGFR > 60.00
--- NOTE | 2024-06-01 07:32 | W.PN.HOSP.TC ---
Today's Communication/Plan
-
Endoscopic injection/balloon dilation and possible stenting for bowel narrowing/obstruction -- scheduled for today 06/01/24
Assessment / Plan
Assessment / Plan
Physical Exam
General: Not in acute distress
HEENT: Normocephalic, Moist mucous membranes
Respiratory: Clear to Auscultation Bilaterally
Cardiac: S1/S2 and Regular Rhythm
GI: Soft, Non Distended, Normal Bowel Sounds and Nontender
Musculoskeletal: No Cyanosis and No Edema
Skin: Warm. Dry.
Neuro: Sleeping
Assessment/Plan
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
3 days. History obtained from daughters. He has been eating very little and clenching his abdomen. He is unable to provide history due to dementia. He was dry heaving without vomiting today. He had a large bowel movement yesterday unknown
whether there was any blood in the stool. No bowel movements today. No fevers or chills. He does not smoke or drink alcohol.
# Presentation with Abdominal Pain
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
-Continue N.p.o. (except medications) and only if patient vomits, then consider NG tube
-IV fluids
-Gastrografin enema: showed contrast filling the rectum and distal sigmoid with a severe luminal narrowing in the distal sigmoid at the level of the anastomotic site with no contrast going proximally consistent with an obstruction as per GI
-GI consulted
-Colorectal surgery consulted (patient known to colorectal surgeon Dr. Villa)
-Patient's family prefers patient to have an attempt at endoscopic injection/balloon dilation and possible stenting -- scheduled for today 06/01/24
Recent fall on May 20, 2024 sustaining left superior pubic ramus fracture and acetabular fracture
-WBAT to LLE
-Follow-up with orthopedics outpatient
Essential hypertension
-Not on medication
Dementia
-Hold memantine
BPH
-Hold tamsulosin
Full code
DVT prophylaxis-SCDs. Lovenox.
N.p.o. (except meds)
Patient requires a wheelchair within the home to complete their daily activities. Patient unable to self propel. He has a caregiver to propel him. Patient is in need of a semi-electric hospital bed with foam mattress due to the need to elevate the
head of the bed above 30 degrees to prevent aspiration and to facilitate frequent repositioning to prevent bed ulcers and pressure points.
Anticipated Discharge: 24 - 48 hours
Subjective/Interval History
-
Date of Service: June 01, 2024
Patient was seen and examined. No new symptoms or complaints.
Objective Data
-
Labs:
Laboratory Results
06/01/24 06/01/24
00:33 05:04
Sodium 136
Potassium 3.6 3.6
Chloride 104
Carbon Dioxide 24
BUN 15
Creatinine 0.7
Glucose 106 H
Calcium 8.9
Vital Signs:
Vital Signs
Temp Pulse Resp BP Pulse Ox
97.9 F 72 15 153/84 95
06/01/24 07:24 06/01/24 07:24 06/01/24 07:24 06/01/24 07:24 06/01/24 07:24
I&O
05/31/24 06/01/24 06/02/24
06:59 06:59 06:59
Intake Total 900 / 900
Balance 900 / 900
[2024-06-01] MEDS: THIAMINE INJECTION 100 MG IV (08:30)
[2024-06-01] MEDS: FLUSH (NSS) 2 FLUSH IV (08:32)
[2024-06-01] MEDS: LOVENOX 40 MG SC (17:31)
[2024-06-01] MEDS: MIRALAX 17 GRAMS PO (22:14)
[2024-06-02 00:40] LABS: Potassium 3.3 mmol/L (3.5-5.1)
--- NOTE | 2024-06-02 02:30 | PTCARENOTE ---
Received patient from 3W in bed. Patient drowsy and nonverbal. Opens eyes to tactile stimuli, occasionally voice. Oriented patient to room and placed call [place] within reach.
[2024-06-02 03:53] VITALS: BP 141/62
[2024-06-02 07:30] VITALS: BP 159/81
[2024-06-02] MEDS: MIRALAX 17 GRAMS PO ×2 (08:25→20:03)
[2024-06-02] MEDS: THIAMINE INJECTION 100 MG IV (08:25)
[2024-06-02] MEDS: FLUSH (NSS) 1 FLUSH IV (08:26)
[2024-06-02 09:41] LABS: Hematocrit 31.5 % (39.0-52.0); Mean Corp Hgb Conc. 34.9 g/dL (33.0-37.0); Mean Corpuscular Hgb 30.3 pg (27.0-31.0); Mean Corpuscular Volume 86.8 fL (80.0-94.0); Mean Platelet Volume 9.7 fL (7.4-10.4); Platelet Count 203 10^3/uL (130-400); Red Blood Cell Count 3.63 10^6/uL (4.70-6.10); White Blood Cell Count 5.3 10^3/uL (4.8-10.8)
[2024-06-02 10:17] LABS: Blood Urea Nitrogen 9 mg/dl (9-20); Calcium 8.4 mg/dl (8.4-10.2); Carbon Dioxide 29 mmol/L (22-30); Chloride 98 mmol/L (98-107); Estimated Creatinine Clearance 56 ml/min; Glucose 106 mg/dl (70-99); Potassium 3.3 mmol/L (3.5-5.1); Sodium 133 mmol/L (135-145); eGFR > 60.00
--- NOTE | 2024-06-02 10:17 | CM ---
Addendum entered by Isabella Jason RN 06/03/24 08:16:
DME will not be delivered by discharge.All paper work submitted.Family aware DME may take weeks to be processed.
Original Note:
[facility] confirmed pt has [place] Medicaid access.
Reviewed PT OT evals for SNF with dgts and .
Family refused SNF requested pt home with [facility] .
Daughters interpreted Danish /Albanian for [facility].
[facility] working on equipment for home.(hospital bed and wheelchair)May have copay.
Family may purchase wc if copay is high.
PLAN Home with [facility]
--- NOTE | 2024-06-02 10:43 | W.PN.CRS1 ---
Today's Communication / Plan
-
no plans for surgery
diet per GI
will s/o
Assessment/Plan
-
Assessment: 89 yo male with a history of sigmoid resection secondary to a volvulus in 2021, presents with abdominal pain/nausea/hiccuping and found with a ?stricture by anastamosis, s/p flex sig by GI on 06/01 with decompression (no stricture noted)
-Diet per GI
-No role for an NGT at this point unless patient starts vomiting
-No surgery at this time
-Will sign off, please contact if any issues arise
Subjective Data
Subjective Data
Date of Service: June 02, 2024
Patient resting comfortably. No acute issues.
Objective Data
-
Vital Signs
Temp Pulse Resp BP Pulse Ox
97.9 F 69 16 159/81 92
06/02/24 07:30 06/02/24 07:30 06/02/24 07:30 06/02/24 07:30 06/02/24 08:23
Intake & Output
06/01/24 06/02/24 06/03/24
06:59 06:59 06:59
Intake Total 900 / 900
Balance 900 / 900
Intake:
Oral fluids 0 / 0
IV fluids (Total) 900 / 900
Other:
How many times incontinent 2
MODERATE amount urine
How many times incontinent 3 2
SATURATED amount urine
Lab Results
06/02/24 09:25
06/02/24 09:25
Physical Exam
-
General: No Acute Distress and AOx3
Abdomen: Soft and Non Tender
Skin: Warm and Dry
--- NOTE | 2024-06-02 10:52 | W.PN.HOSP.TC ---
Today's Communication/Plan
-
Discharge today
Assessment / Plan
Assessment / Plan
Physical Exam
General: Not in acute distress
HEENT: Normocephalic, Moist mucous membranes
Respiratory: Clear to Auscultation Bilaterally
Cardiac: S1/S2 and Regular Rhythm
GI: Soft, Non Distended, Normal Bowel Sounds and Nontender
Musculoskeletal: No Cyanosis and No Edema
Skin: Warm. Dry.
Neuro: Sleeping
Assessment/Plan
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
3 days. History obtained from daughters. He has been eating very little and clenching his abdomen. He is unable to provide history due to dementia. He was dry heaving without vomiting today. He had a large bowel movement yesterday unknown
whether there was any blood in the stool. No bowel movements today. No fevers or chills. He does not smoke or drink alcohol.
#Presentation with Abdominal Pain
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
-Start Regular Diet
-Gastrografin enema: showed contrast filling the rectum and distal sigmoid with a severe luminal narrowing in the distal sigmoid at the level of the anastomotic site with no contrast going proximally consistent with an obstruction as per GI
-GI consulted
-Colorectal surgery consulted (patient known to colorectal surgeon Dr. Villa)
-Sigmoidoscopy on 06/02/24: Hemorrhoids found on perianal exam, stool in the entire examined colon, dilated in the recto-sigmoid colon and in the sigmoid colon, decompressed, no obvious surgical anastomosis was found.
-Continue osmotic laxative Miralax
#Recent fall on May 20, 2024 sustaining left superior pubic ramus fracture and acetabular fracture
-WBAT to LLE
-Follow-up with orthopedics outpatient
#Essential hypertension
-Not on medication
#Dementia
-Hold memantine
#BPH
-Continue tamsulosin
Code Status: Full code
DVT prophylaxis: SCDs. Lovenox.
Regular Diet
Patient requires a wheelchair within the home to complete their daily activities. Patient unable to self propel. He has a caregiver to propel him. Patient is in need of a semi-electric hospital bed with foam mattress due to the need to elevate the
head of the bed above 30 degrees to prevent aspiration and to facilitate frequent repositioning to prevent bed ulcers and pressure points.
More than 30 minutes spent in discharge including
Final examination of the patient
Summarizing hospital stay
Instructions for continuing care to all relevant caregivers
Preparation of discharge records, prescriptions, and referral forms
Total time spent (in minutes): 38
Anticipated Discharge: Today
Subjective/Interval History
-
Date of Service: June 02, 2024
Patient was seen and examined. No new events or complaints.
Objective Data
-
Labs:
Laboratory Results
06/01/24 06/02/24
22:21 09:25
WBC 5.3
Hgb 11.0 L
Hct 31.5 L
Plt Count 203
Sodium 133 L
Potassium 3.3 L 3.3 L
Chloride 98
Carbon Dioxide 29
BUN 9
Creatinine 0.8
Glucose 106 H
Calcium 8.4
Vital Signs:
Vital Signs
Temp Pulse Resp BP Pulse Ox
97.9 F 69 16 159/81 92
06/02/24 07:30 06/02/24 07:30 06/02/24 07:30 06/02/24 07:30 06/02/24 08:23
I&O
06/01/24 06/02/24 06/03/24
06:59 06:59 06:59
Intake Total 900 / 900
Balance 900 / 900
[2024-06-02 11:28] VITALS: BP 135/66
--- NOTE | 2024-06-02 11:32 | W.PN.GI.CBS2 ---
Today's Communication / Plan
-
Can start regular diet. Standing order for osmotic laxative. GI s/o.
Assessment / Plan
-
89-year-old male with past medical history of Alzheimer's disease, Ghanaian-speaking, history of sigmoid volvulus status post endoscopic decompression as well as sigmoid resection 2021, hypertension who presents to the emergency room with abdominal
discomfort. History is obtained from his daughter Katie who is at bedside. The patient has been expressing abdominal discomfort and the way he does this by usually rubbing his abdomen or rubbing his 2 feet together. He had dry heaving without any
vomiting. He had a large bowel movement prior to coming to the emergency room. No further bowel movements since that time. Findings are therefore felt most likely to represent stricture at the distal colonic anastomosis with redundant proximal
colon. This stricture is seen most clearly on coronal image 27. Furthermore there is a prominent rectal stool bolus and findings are not typical for colonic volvulus. Severe constipation. Consider therapeutic enemas and repeat imaging as clinically
indicated.
S/p flx sigmoidoscopy yesterday which did not show stricture/obstructing lesion. Inadequate visualization but did not locate surgical anastomosis. Pt had BM during procedure and overnight. Abdomen is flat. Can resume diet, standing order for
osmotic laxative. Will s/o.
Total Time Spent with Patient (in minutes): 35
Subjective
Subjective
Date of Service: June 02, 2024
Had BM as per nursing staff
Objective
Data Reviewed
Laboratory Data:
Laboratory Results
06/02/24 09:25
06/02/24 09:25
Laboratory Results
Magnesium 1.6 mg/dl (1.6-2.3) 05/31/24 05:15
Total Bilirubin 1.2 mg/dl (0.2-1.3) 05/29/24 05:07
AST 17 U/L (17-59) 05/29/24 05:07
ALT 11 U/L (0-50) 05/29/24 05:07
Alkaline Phosphatase 161 U/L (38-126) H 05/29/24 05:07
Lipase 40 U/L (23-300) 05/28/24 13:53
Vital Signs and I&O:
Vital Signs
Temp Pulse Resp BP Pulse Ox
98.1 F 70 18 135/66 93
06/02/24 11:28 06/02/24 11:28 06/02/24 11:28 06/02/24 11:28 06/02/24 11:28
I&O
06/01/24 06/02/24 06/03/24
06:59 06:59 06:59
Intake Total 900 / 900
Balance 900 / 900
[2024-06-02] MEDS: KCL 260 MEQ IV (11:57)
[2024-06-02 15:22] VITALS: BP 147/73
--- NOTE | 2024-06-02 15:37 | PTCARENOTE ---
Pt sleeping for most of shift; arousable to name, moves arms slowly when disturbed. Verbalizes minimally when speaks to him; does not follow commands; keeps eyes closed. Pt Mauritian; has h/o dementia. VSS. On room air- pulse ox 100%, no SOB
noted. Abd soft, rounded, alden small amts clear liquids with encouragement by . Condom cath intact; pt incont mod amts clear yellow urine. Resting in bed at present; at bedside. Will continue to monitor.
--- NOTE | 2024-06-02 16:57 | W.PN.UPDATE ---
Update Note
Progress Note Update
Discharge order cancelled as gustavo Wilson says that she wants to see patient eating regular solid food without any hiccups. She is agreeable to discharge tomorrow if patient tolerates solid food intake. Gustavo Wilson wants discharge tomorrow.
[2024-06-02] MEDS: LOVENOX 40 MG SC (17:49)
--- NOTE | 2024-06-02 18:41 | PTCARENOTE ---
Pt alden regular diet well; fed by family.
[2024-06-02 23:36] VITALS: BP 139/68
[2024-06-03 06:56] LABS: Blood Urea Nitrogen 11 mg/dl (9-20); Calcium 8.4 mg/dl (8.4-10.2); Carbon Dioxide 28 mmol/L (22-30); Chloride 99 mmol/L (98-107); Estimated Creatinine Clearance 65 ml/min; Glucose 88 mg/dl (70-99); Potassium 3.3 mmol/L (3.5-5.1); Sodium 132 mmol/L (135-145); eGFR > 60.00
[2024-06-03 07:10] VITALS: BP 152/74
[2024-06-03] MEDS: THIAMINE INJECTION 100 MG IV (08:56)
[2024-06-03] MEDS: MIRALAX 17 GRAMS PO (08:58)
--- NOTE | 2024-06-03 10:58 | W.PN.HOSP.TC ---
Addendum entered and electronically signed by Linda Edwards MD 06/03/24 13:54:
total DC time 36 min
Original Note:
Today's Communication/Plan
-
see A/P
Assessment / Plan
Assessment / Plan
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
to 3 days. History obtained from daughters. He has been eating very little and clenching his abdomen. He is unable to provide history due to dementia.
Assessment/Plan:
# Presentation with Abdominal Pain
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
Gastrografin enema: showed contrast filling the rectum and distal sigmoid with a severe luminal narrowing in the distal sigmoid at the level of the anastomotic site with no contrast going proximally consistent with an obstruction as per GI
Colorectal surgery consulted (patient known to colorectal surgeon Dr. Villa)
Sigmoidoscopy on 06/02/24: Hemorrhoids found on perianal exam, stool in the entire examined colon, dilated in the recto-sigmoid colon and in the sigmoid colon, decompressed, no obvious surgical anastomosis was found.
Continue osmotic laxative Miralax
Cont regular diet
# Recent fall on May 20, 2024 sustaining left superior pubic ramus fracture and acetabular fracture
WBAT to LLE
Follow-up with orthopedics outpatient
PT recc SNF however family elected HH
# Essential hypertension
Not on medication
# Dementia
resume memantine
# BPH
Continue tamsulosin
# hypokalemia
replete
Code Status: Full code
DVT prophylaxis: SCDs. Lovenox.
Regular Diet
DW daughter
DW CM
Anticipated Discharge: Today
Subjective/Interval History
-
Date of Service: June 03, 2024
Objective Data
-
Labs:
Laboratory Results
06/03/24
05:33
Sodium 132 L
Potassium 3.3 L
Chloride 99
Carbon Dioxide 28
BUN 11
Creatinine 0.7
Glucose 88
Calcium 8.4
Vital Signs:
Vital Signs
Temp Pulse Resp BP Pulse Ox
36.6 C 68 16 152/74 95
06/03/24 07:10 06/03/24 07:10 06/03/24 07:10 06/03/24 07:10 06/03/24 07:10
I&O
06/02/24 06/03/24 06/04/24
06:59 06:59 06:59
Intake Total 1250 / 1250
Output Total 1000 / 1000
Balance 250 / 250
Review of Systems
-
Unable to obtain full review of systems at this time due to: Dementia
Physical Exam
-
General: Well Developed, Well Nourished, No Apparent Distress and Comfortable
Respiratory: Clear to Auscultation and Non Labored Respirations; Negative Accessory Resp Muscle Use
Cardiac: Regular Rhythm and S1/S2
GI: Soft, Nontender, Nondistended and Normal Bowel Sounds
Neuro: Awake and Alert
Psych: Calm and Apparent Dementia
Data Reviewed
-
Labs: Labs Reviewed by me
--- NOTE | 2024-06-03 11:24 | CM ---
CM following re: discharge planning.
Reviewed pt's chart, met with pt and daughter Hina at bedside.
Discharge order noted. Both pt and his daughter are aware. Pt's daughter stated that pt will go to her sister's [address] at [address] Pt's daughter requested ambulance to transport pt home.
Per CM note, [facility] will provide after care [facility] services and ordered all necessary DMEs.
Please fax discharge instructions to [facility] at [phone]
arranged ambulance with Acute care ambulance, [facility] with pickling tank operator time 3:30 p.m. [facility] completed and left with .
D/C plan: home to daughter's house with [facility], necessary DME and family support.
[2024-06-03] MEDS: KLOR-CON 40 MEQ PO (12:01)
--- NOTE | 2024-06-03 13:47 | W.DCSUMMARY ---
Discharge Summary
Discharge Data
Date of Admission: 05/28/24
Date of Discharge: 06/03/24
-
Pending Results: No
Hospital Course
Principal Diagnosis:
Abdominal pain, resolved. Likely due to constipation.
Chronic Diagnoses:�
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
Recent fall on May 20, 2024 sustaining left superior pubic ramus fracture and acetabular fracture
Essential hypertension, not on medication
Dementia on memantine
Benign prostate hypertrophy, on tamsulosin
Consultations:�
Colorectal surgery
Gastroenterology
Procedures:�
Sigmoidoscopy on 06/02/24: Hemorrhoids found on perianal exam, stool in the entire examined colon, dilated in the recto-sigmoid colon and in the sigmoid colon, decompressed, no obvious surgical anastomosis was found.
Clinical course:�
This is a 89-year-old male with past medical history as stated above, who presented with abdominal discomfort for 2 to 3 days prior to admission. He is a poor historian due to underlying dementia.
Problem 1:
Presentation with Abdominal Pain, likely due to constipation.
His Gastrografin enema showed contrast filling the rectum and distal sigmoid with a severe luminal narrowing in the distal sigmoid at the level of the anastomotic site with no contrast going proximally consistent with an obstruction.
He underwent sigmoidoscopy on 06/02/24, which noted hemorrhoids, stool in the entire examined colon, dilated recto-sigmoid colon and sigmoid colon, decompressed, and no obvious surgical anastomosis was found.
The patient had bowel movement during the procedure with improved abdominal symptom.
He can continue with laxative MiraLAX going forward to prevent constipation.
Problem 2:
Recent fall on May 20, 2024 sustaining left superior pubic ramus fracture and acetabular fracture.
He can WBAT to LLE, and follow-up with orthopedics outpatient.
Although PT recc [facility], however family elected .
As for the rest of his medical problems, they were stable during his hospital stay.
Discharge Plan
-
Patient Disposition: Home with Home Care
Discharge Diagnosis/Procedures: #Presentation with Abdominal Pain status post flex sigmoidoscopy on 06/01/24 which did not show stricture/obstructing lesion- patient had bowel movement during procedure and overnight - abdomen flat
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
#Recent fall on May 20, 2024 sustaining left superior pubic ramus fracture and acetabular fracture
#Essential hypertension
#Dementia
#BPH
Condition: Fair
Diet: As tolerated
Activity: With assistance and Other activity
Additional Activity: WBAT to LLE
Blood Work: Check CBC, BMP and Magnesium through primary care provider's office by 06/05/24
Other Services: [facility]
Referrals:
Jose Michaels MD [Active] - in three to four weeks (Subtle nondisplaced fracture at the junction of the lateral aspect of the left superior pubic ramus and anterior column of the left acetabulum on hospital CT Imaging)
Naima Chi MD [Family Provider] - in less than 1 week
Additional Discharge Medication Instructions: Polyethylene glycol is a new medication.
Prescriptions:
New
polyethylene glycol 3350 17 gram Powder In Packet
17 g PO BID Qty: 100 1RF
Continued
memantine 10 mg Tablet
10 mg PO BID
tamsulosin 0.4 mg Capsule
0.4 mg PO DAILY
Discharge Orders:
Discharge Patient (As Directed); Ordered 06/03/24
Ordered By: Linda Edwards
Discharge Date and Time
Print Language: North Korean
[2024-06-03 14:42] VITALS: BP 155/78
[2024-06-03 15:10] VITALS: BP 113/52
--- NOTE | 2024-06-03 15:55 | PTCARENOTE ---
IV discontinued. Discharge paperwork printed and reviewed with patient's daughter who verbalized understanding. Pt transported off the floor via ambulance stretcher to be transported home.
== END 2024-06-03 16:02 | disposition home health service (06) | DRG 392 ==
LOC: 4 EAST ACU 19:48
PROVIDERS: Emergency Medicine; Hospitalist; Internal Medicine Gastroenterology; ADMITTING PHYSICIAN Hospitalist; ATTENDING PHYSICIAN Internal Medicine; CONSULT PHYSICIAN Internal Medicine; CONSULT PHYSICIAN Surgery; EMERGENCY PHYSICIAN Emergency Medicine; FAMILY PHYSICIAN Family Medicine
PROC: 0DJD8ZZ Inspection of Lower Intestinal Tract, Via Natural or Artificial Opening Endoscopic (ICD-10-PCS; 2024-06-01)
DX: K59.00 Constipation, unspecified (principal); F02.84 Dementia in other diseases classified elsewhere, unspecified severity, with anxiety; K59.39 Other megacolon; R62.7 Adult failure to thrive; I10 Essential (primary) hypertension; N40.0 Benign prostatic hyperplasia without lower urinary tract symptoms; G30.9 Alzheimer's disease, unspecified; K64.9 Unspecified hemorrhoids; E87.6 Hypokalemia; S35.29 Injury of branches of celiac and mesenteric artery; W19.XXXD Unspecified fall, subsequent encounter; Z11.52 Encounter for screening for COVID-19; Z68.20 Body mass index [BMI] 20.0-20.9, adult; Z79.899 Other long term (current) drug therapy
CPT/HCPCS: 74022; 74177; 74270; 80048; 80053; 81003; 81015; 83690; 83735; 84132; 85025; 85027; 87502; 87811; 97163; 97167; 97530; 99285; Q9967